=== PATIENT | male | born 1955 | race Caucasian/White ===

== ENCOUNTER 2018-12-31 20:04 | Inpatient (IN) | payer OTHER ==
[~2018-12-31] VITALS: Ht 185.4 cm; Wt 104.3 kg
--- NOTE | 2018-12-31 20:19 | NUR ---
JANICE FROM HOME FOR WITNESSED SYNCOPAL EPISODE, PER RA PATIENT HR DROPPED DOWN TO 30'S X 2 TIMES ON SCENE. PATIENT STATES NOT EATING X 4-5 DAYS. DENIES SI/HI, BUT FEELS HE WON'T LIVE MUCH LONGER. DENIES PAIN. SKIN IS WARM, DRY, INTACT. NO ACUTE DISTRESS NOTED. HOOKED TO MONITOR AND READY FOR EVAL.
[2018-12-31] MEDS ORDERED: THIAMINE HCL 100 MG TABLET ONE (20:24)
[2018-12-31] MEDS ORDERED: LORAZEPAM INJ 2 MG/ML VIAL ONE (20:24)
[2018-12-31] MEDS ORDERED: FOLIC ACID 1 MG TABLET ONE (20:24)
[2018-12-31] MEDS ORDERED: FOLIC ACID 1 MG TABLET PO ONE (20:30)
[2018-12-31] MEDS ORDERED: LORAZEPAM INJ 2 MG/ML VIAL IV ONE (20:30)
[2018-12-31] MEDS ORDERED: IV D5/0.45 NACL 500 ML IV ONE (20:30)
[2018-12-31] MEDS ORDERED: IV NS 0.9% 1,000 ML BAG IV ONE (20:30)
[2018-12-31] MEDS ORDERED: THIAMINE HCL 100 MG TABLET PO ONE (20:30)
[2018-12-31 20:33] LABS: BASOPHILS # (AUTO) 0.1 /CMM (0.0-0.2); BASOPHILS % (AUTO) 1.1 % (0.0-2.0); EOSINOPHILS % (AUTO) 0.2 % (0.0-6.0); HEMATOCRIT 36 % (39-51); HEMOGLOBIN 12.6 g/dL (13.5-17.5); LYMPHOCYTES # (AUTO) 0.8 /CMM (0.8-4.8); LYMPHOCYTES % (AUTO) 11.4 % (20.0-44.0); MEAN CORPUSCULAR HGB CONC 35 g/dl (31.0-36.0); MEAN CORPUSCULAR VOLUME 106 fL (80-96); MONOCYTES # (AUTO) 0.4 /CMM (0.1-1.30); MONOCYTES % (AUTO) 5.7 % (2.0-12.0); NEUTROPHILS % (AUTO) 81.6 % (43.0-81.0); PLATELET COUNT (AUTO) 173 /CMM (150-450); RED BLOOD CELL COUNT(AUTO) 3.37 MIL/uL (4.5-6.0); WHITE BLOOD COUNT (AUTO) 7.4 K/uL (4.3-11.0)
[2018-12-31 20:47] LABS: CALCIUM, SERUM 8.7 mg/dL (8.5-10.1); CARBON DIOXIDE 23 mmol/L (21-32); CHLORIDE 97 mmol/L (98-107); CREATININE 1.7 mg/dL (0.6-1.3); GLUCOSE 150 mg/dL (74-106); POTASSIUM 3.6 mmol/L (3.5-5.1); SODIUM SERUM 138 mmol/L (136-145); UREA NITROGEN, BLOOD 19 mg/dL (7-18)
[2018-12-31 20:54] LABS: ALANINE AMINOTRANSFERASE 388 U/L (12-78); ALBUMIN 3.6 g/dL (3.4-5.0); ALCOHOL, BLOOD 34 mg/dL (0-0); ALKALINE PHOSPHATASE 101 U/L (46-116); ASPARTATE AMINOTRANSFERASE 461 U/L (15-37); BILIRUBIN,DIRECT 0.8 mg/dL (0.0-0.2); BILIRUBIN,TOTAL 2.1 mg/dL (0.2-1.0); TOTAL PROTEIN, SERUM 6.7 g/dL (6.4-8.2)
[2018-12-31] MEDS ORDERED: Magnesium 1GM/D5W 100ML PREMIX 200 ML IV ONE (21:08)
--- NOTE | 2018-12-31 21:10 | NUR ---
PT TAKEN TO RADIOLOGY VIA [facility]
[2018-12-31 21:15] LABS: LYMPHOCYTES % (MANUAL) 8 % (16-48); MONOCYTES % (MANUAL) 7 % (0-11.0); NEUTROPHILS % (MANUAL) 85 (42-76)
[2018-12-31] MEDS: Magnesium 1GM/D5W 100ML PREMIX 100 ML IV SCH ×2 (21:35→22:40)
--- NOTE | 2018-12-31 21:35 | NUR ---
SCIENCE TEACHER AT BEDSIDE
--- NOTE | 2018-12-31 22:03 | NUR ---
GLADIS WAS CALLED. MARKET RESEARCH CONSULTANT WAS PAGED.
--- NOTE | 2018-12-31 22:20 | NUR ---
TELE BED 311-2 GIVEN
--- NOTE | 2018-12-31 22:42 | NUR ---
REPORT GIVEN TO GARRETT BECERRA FOR 311-2 T
--- NOTE | 2018-12-31 23:14 | NUR ---
URINE SENT TO LAB
[2018-12-31] MEDS ORDERED: IV NS 0.9% 1,000 ML IV PRN (23:17)
[2018-12-31 23:24] LABS: APPEARANCE,URINE Clear (CLEAR); BILIRUBIN,URINE SMALL (NEGATIVE); BLOOD, URINE Negative Ery/uL (NEGATIVE); COLOR,URINE Other (YELLOW); KETONES,URINE Trace (NEGATIVE); LEUKOCYTE ESTERASE ,URINE Negative (NEGATIVE); NITRITE, URINE Negative (NEGATIVE); PH,URINE 5.5 (5.0-8.0); PROTEIN,URINE 100 mg/dl (NEGATIVE); UGLUCOSE Negative (NEGATIVE)
[2018-12-31] MEDS ORDERED: MORPHINE SULFATE INJ 2 MG/ML DISP.SYRIN IV PRN (23:30)
[2018-12-31] MEDS ORDERED: ACETAMINOPHEN 325 MG TABLET PO PRN (23:30)
[2018-12-31] MEDS ORDERED: HYDROCODONE/APAP 5/325MG 1 EACH TABLET PO PRN (23:30)
[2018-12-31] MEDS ORDERED: MAGNESIUM HYDROXIDE 30 ML UDC PO PRN (23:30)
[2018-12-31] MEDS ORDERED: ONDANSETRON HCL/PF 4 MG/2 ML VIAL IVP PRN (23:30)
[2018-12-31] MEDS ORDERED: MAG HYDROX/AL HYDROX/SIMETH 30 ML UDC PO PRN (23:30)
[2018-12-31] MEDS ORDERED: LORAZEPAM INJ 2 MG/ML VIAL IV PRN (23:30)
[2018-12-31] MEDS ORDERED: Z GUARD REMEDY 2 OZ OINT TP PRN (23:30)
--- NOTE | 2018-12-31 23:44 | NUR ---
PT TO 3W VIA ACLS PROTOCOL.
[2019-01-01 00:09] VITALS: BP 147/84
[2019-01-01] MEDS ORDERED: LOSA100T31 PO (00:45)
--- NOTE | 2019-01-01 05:47 | NUR ---
FUNERAL HOME ATTENDANT ADMITTING NOTES RECEIVED PT FROM ER, [facility]IA [facility], AWAKE ALERT AND ORIENTED X4, ABLE TO AMBULATE FROM GURNEY TO BED. BREATHING EVEN AND UNLABORED ON ROOM AIR. NO COMPLAINT OF PAIN AT THIS TIME, PT STATES FELLING DIZZY WHEN AMBULATING. IV ACCESS ON THE RAC 18G AND LAC 20G WITH NS @100ML/HR. TELE MONITOR IN PLACE SR IN THE 90S. BED IN LOWEST LOCKED POSITION , CALL LIGHT WITHIN REACH AT ALL TIMES, WILL CONTINUE TO MONITOR.
--- NOTE | 2019-01-01 06:13 | NUR ---
INTERNATIONAL MANAGER ADMITTING NOTES PT REMAINS IN BED, AWAKE ALERT AND ORIENTED X4, BREATHING EVEN AND UNLABORED ON ROOM AIR. NO COMPLAINT OF PAIN AT THIS TIME. IV ACCESS ON THE RAC 18G AND LAC 20G WITH NS @100ML/HR. TELE MONITOR IN PLACE SR IN THE 80S. BED IN LOWEST LOCKED POSITION , CALL LIGHT WITHIN REACH AT ALL TIMES, WILL ENDORSE TO DAY NURSE FOR ALESSIA
[2019-01-01 07:46] LABS: BASOPHILS % (AUTO) 0.6 % (0.0-2.0); EOSINOPHILS % (AUTO) 0.3 % (0.0-6.0); HEMATOCRIT 31 % (39-51); HEMOGLOBIN 11.4 g/dL (13.5-17.5); LYMPHOCYTES # (AUTO) 0.7 /CMM (0.8-4.8); MEAN CORPUSCULAR HGB CONC 37 g/dl (31.0-36.0); MEAN CORPUSCULAR VOLUME 104 fL (80-96); MONOCYTES # (AUTO) 0.4 /CMM (0.1-1.30); NEUTROPHILS # (AUTO) 5.5 /CMM (1.8-8.9); NEUTROPHILS % (AUTO) 82.1 % (43.0-81.0); PLATELET COUNT (AUTO) 126 /CMM (150-450); RED BLOOD CELL COUNT(AUTO) 2.99 MIL/uL (4.5-6.0); WHITE BLOOD COUNT (AUTO) 6.7 K/uL (4.3-11.0)
[2019-01-01 07:52] LABS: ALBUMIN 3.3 g/dL (3.4-5.0); BILIRUBIN,DIRECT 0.9 mg/dL (0.0-0.2); CALCIUM, SERUM 8.3 mg/dL (8.5-10.1); CREATININE 1.5 mg/dL (0.6-1.3); MAGNESIUM 1.3 mg/dL (1.8-2.4); PHOSPHORUS 2.6 mg/dL (2.5-4.9); POTASSIUM 3.9 mmol/L (3.5-5.1)
[2019-01-01 08:00] VITALS: BP 138/91
--- NOTE | 2019-01-01 08:00 | NUR ---
INTERNATIONAL BROADCAST MUSIC LIBRARIAN OPENING NOTES Received Patient awake, comfortable and watching TV. A/O x 4. VS stable with no acute distress. Breathing even and unlabored on room air O2 sat at 96% with no acute respiratory distress. Denies Pain. Tele monitor in place and operational. SR HR-88. PIV on LAC 20g with IVF NS 100ml/hr running. IV site clean, dry and intact and flushes well. Skin intact. Safety precautions placed. Bed locked and in lowest position with side rails x 2 up. Call light within reach. Will continue to monitor.
[2019-01-01 08:06] LABS: THYROID STIMULATING HORMONE 2.394 uIU/mL (0.358-3.74)
[2019-01-01 09:27] LABS: IRON, SERUM 179 ug/dl (50-175); TOTAL IRON BINDING CAPACITY 185 ug/dl (250-450)
[2019-01-01] MEDS: PANTOPRAZOLE 40 MG TABLET.DR PO SCH (09:49)
[2019-01-01] MEDS: Magnesium 1GM/D5W 100ML PREMIX 100 ML IV SCH ×2 (09:50→11:31)
[2019-01-01] MEDS: THIAMINE HCL 100 MG TABLET PO SCH (09:50)
[2019-01-01] MEDS: FOLIC ACID 1 MG TABLET PO SCH (09:50)
[2019-01-01 10:00] VITALS: BP 138/91
[2019-01-01 10:01] LABS: FERRITIN 2609 ng/mL (8-388)
[2019-01-01] MEDS: CHLORDIAZEPOXIDE HCL 25 MG CAPSULE PO SCH ×2 (11:31→17:46)
[2019-01-01 16:00] VITALS: BP 119/75
--- NOTE | 2019-01-01 19:35 | NUR ---
MS RN CLOSING NOTES Patient awake, comfortable and watching TV. A/O x 4. VS stable with no acute distress. Breathing even and unlabored on room air O2 sat at 96% with no acute respiratory distress. Denies Pain. PIV on LAC 20g saline lock. IV site clean, dry and intact and flushes well. All needs rendered. Safety precautions placed. Bed locked and in lowest position with side rails x 2 up. Call light within reach. Will endorse plan of care to oncoming nurse.
--- NOTE | 2019-01-01 19:57 | NUR ---
RN NOTES RECEIVED PATIENT ASLEEP IN BED, NO SIGNS OF ACUTE RESPIRATORY DISTRESS NOTED, BREATHING EVEN AND UNLABORED, RESPONDS TO BOTH TACTILE AND VERBAL STIMULI, SAFETY MEASURES IN PLACED, BED IN LOW LOCKED POSITIONED, BEDSIDE RAILS UP X2, PERIPHERAL IV LINE ON HIS LEFT AC G#20 INTACT AND PATENT, CALL LIGHT WITH IN EASY REACH, WILL MONITOR ACCORDINGLY.
--- NOTE | 2019-01-01 21:30 | NUR ---
RN NOTES PATIENT ASKED FOR A SNACK, CONSUMED A CHICKEN SANDWICH AND APPLE JUICE, NO SIGNS OF DISTRESS AT THIS TIME, WILL MONITOR ACCORDINGLY.
[2019-01-02 06:38] LABS: BASOPHILS % (AUTO) 0.6 % (0.0-2.0); EOSINOPHILS % (AUTO) 2.8 % (0.0-6.0); HEMATOCRIT 29 % (39-51); HEMOGLOBIN 10.6 g/dL (13.5-17.5); LYMPHOCYTES # (AUTO) 1.6 /CMM (0.8-4.8); LYMPHOCYTES % (AUTO) 29.6 % (20.0-44.0); MEAN CORPUSCULAR HGB CONC 36 g/dl (31.0-36.0); MEAN CORPUSCULAR VOLUME 105 fL (80-96); MONOCYTES # (AUTO) 0.2 /CMM (0.1-1.30); MONOCYTES % (AUTO) 4.6 % (2.0-12.0); NEUTROPHILS # (AUTO) 3.3 /CMM (1.8-8.9); NEUTROPHILS % (AUTO) 62.4 % (43.0-81.0); PLATELET COUNT (AUTO) 105 /CMM (150-450); RED BLOOD CELL COUNT(AUTO) 2.81 MIL/uL (4.5-6.0); WHITE BLOOD COUNT (AUTO) 5.3 K/uL (4.3-11.0)
[2019-01-02 07:05] LABS: ALBUMIN 3.1 g/dL (3.4-5.0); BILIRUBIN,TOTAL 2.1 mg/dL (0.2-1.0); CALCIUM, SERUM 8.4 mg/dL (8.5-10.1); CREATININE 1.5 mg/dL (0.6-1.3); MAGNESIUM 1.5 mg/dL (1.8-2.4); PHOSPHORUS 2.8 mg/dL (2.5-4.9); POTASSIUM 4.2 mmol/L (3.5-5.1); TOTAL PROTEIN, SERUM 5.8 g/dL (6.4-8.2)
--- NOTE | 2019-01-02 07:21 | NUR ---
RN NOTES ABLE TO REST THE ENTIRE SHIFT, UNABLE TO SLEEP, BUT NO SIGNS OF ACUTE RESPIRATORY DISTRESS NOTED, SAFETY MEASURES IN PLACED, ALL NEEDS ATTENDED AND MET, ENDORSED TO AM NURSE FOR CONTINUITY OF CARE.
[2019-01-02 08:00] VITALS: BP 138/89
--- NOTE | 2019-01-02 08:00 | NUR ---
MS RN OPENING NOTES Received Patient awake, comfortable and resting in bed. A/O x 4. VS stable with no acute distress. Breathing even and unlabored on room air with no respiratory distress. Denies Pain. PIV on RFA 22g saline lock clean, dry, intact and flushes well. Skin intact. All needs rendered at this moment. Safety precautions placed. Bed locked and in lowest position with side rails x 2 up. Call light within reach. Will continue to monitor.
[2019-01-02] MEDS: THIAMINE HCL 100 MG TABLET PO SCH (09:23)
[2019-01-02] MEDS: PANTOPRAZOLE 40 MG TABLET.DR PO SCH (09:23)
[2019-01-02] MEDS: FOLIC ACID 1 MG TABLET PO SCH (09:23)
[2019-01-02] MEDS: Magnesium 1GM/D5W 100ML PREMIX 100 ML IV SCH ×2 (09:23→11:30)
[2019-01-02] MEDS: CHLORDIAZEPOXIDE HCL 25 MG CAPSULE PO SCH (09:24)
--- NOTE | 2019-01-02 15:50 | NUR ---
MS PROCESS DEVELOPMENT ASSOCIATE NOTES Patient discharged home at this time. A/O x 4. Patient stable with no acute distress. Denies pain. Breathing even and unlabored with no SOB nor respiratory distress. Skin intact. Patient Medication reconciliation and discharge orders reviewed and explained to Patient. Patient verbalized understanding. All belongings with Patient. Patient will follow up with Primary MD in 1 week. Escorted Patient in wheelchair to the [facility] for safety. Patient picked up by the friend, Cole .
== END 2019-01-02 15:53 | disposition home or self-care (01) | DRG 282 ==
LOC: ER 20:08 → TELE 22:22 → MED 01-01 09:45
PROVIDERS: ADMIT Nurse Practitioner Acute Care; ATTEND Student in an Organized Health Care Education/Training Program
DX: K85.90 Acute pancreatitis without necrosis or infection, unspecified (principal); N17.0 Acute kidney failure with tubular necrosis; I95.1 Orthostatic hypotension; E83.42 Hypomagnesemia; K76.0 Fatty (change of) liver, not elsewhere classified; E44.1 Mild protein-calorie malnutrition; E86.0 Dehydration; F10.239 Alcohol dependence with withdrawal, unspecified; K44.9 Diaphragmatic hernia without obstruction or gangrene; J44.9 Chronic obstructive pulmonary disease, unspecified; Z80.8 Family history of malignant neoplasm of other organs or systems; Z80.7 Family history of other malignant neoplasms of lymphoid, hematopoietic and related tissues; Y90.1 Blood alcohol level of 20-39 mg/100 ml; Z79.899 Other long term (current) drug therapy; Z72.0 Tobacco use; Z98.890 Other specified postprocedural states; D53.9 Nutritional anemia, unspecified; I12.9 Hypertensive chronic kidney disease with stage 1 through stage 4 chronic kidney disease, or unspecified chronic kidney disease; N18.9 Chronic kidney disease, unspecified; R29.6 Repeated falls; E80.6 Other disorders of bilirubin metabolism
CPT/HCPCS: 36415; 70450-TC; 71045-TC; 76705-TC; 80048-TC; 80053-TC; 80061-TC; 80076-TC; 81000-TC; 82140-TC; 82728-TC; 82962-TC; 83540-TC; 83690-TC; 83735-TC; 84100-TC; 84443-TC; 84484-TC; 85025-TC; 85730-TC; 86850-TC; 87081-TC; 93307-TC; 93880-TC; G0378; G0480; J2060; J3475; J3490; J7030; J7060